=== PATIENT | male | born 1955 | race Caucasian/White ===

== ENCOUNTER 2018-08-08 07:36 | Emergency (ER) | payer OTHER ==
[2018-08-08] MEDS ORDERED: Levalbuterol 0.63MG/3ML NEB* UNIT OF USE INH ONE ×3 (07:40→07:42)
[2018-08-08 08:00] VITALS: BP 124/62
--- NOTE | 2018-08-08 08:24 | UC ---
Respiratory Complaint HPI - HPI Summary HPI Summary: 62 yo diabetic with chronic COPD, hx of CO2 retention, presents in respiratory distress. Oxygen dependent, he has had 3 albuterol nebules this morning with saturations remaining in the 70's. He denies chest pain. History of past respiratory failure with admission in 2016 requiring intubation. At that time he had an NSTEMI and renal failure. He is not on chronic steroids. He continues to smoke 1 pack per day. - History of Current Complaint Chief Complaint: UCRespiratory Stated Complaint: DIFFICULTY BREATHING Time Seen by Provider: 08/08/18 07:42 Hx Obtained From: Patient, Family/Rn Bone Marrow Transplant - here with his Nicole Onset/Duration: Gradual Onset, Lasting Days - increased sinus symptoms yesterday Timing: Constant Severity Initially: Severe Severity Currently: Severe Pain Intensity: 0 Character: Cough: Productive Aggravating Factors: Exertion Alleviating Factors: Bronchodilator Associated Signs And Symptoms: Positive: Dyspnea, Nasal Congestion, Sinus Discomfort. Negative: Fever, Chills - Risk Factors Pulmonary Embolism Risk Factors: Smoking Cardiac Risk Factors: Hypertension, Smoking, Diabetes Pseudomonas Risk Factors: Negative Tuberculosis Risk Factors: Negative - Allergies/Home Medications Allergies/Adverse Reactions: Allergies Allergy/AdvReac Type Severity Reaction Status Date / Time Penicillins Allergy Intermediate respiratory Verified 08/08/18 07:49 distress Adhesive Tape Allergy skin rash Verified 08/08/18 07:49 ibuprofen [From Motrin] Allergy kidney Verified 08/08/18 07:49 failure vancomycin Allergy kidney Verified 08/08/18 07:49 failure Home Medications: Home Medications Acetaminophen [Tylenol] 325 mg PO 08/08/18 [History] Albuterol 2.5MG/3ML (0.083%)* [Ventolin 2.5 MG/3 ML NEB.MONSTER*] 2.5 mg INH Q6H PRN 08/08/18 [History Confirmed 08/08/18] Aspirin [Aspir-Low] 81 mg PO 08/08/18 [History] Budesonide/Formote 160/4.5(NF) [Symbicort 160/4.5 (NF)] 2 puff INH BID 08/08/18 [History Confirmed 08/08/18] Cholecalciferol TAB* [Vitamin D TAB*] 2,000 units PO DAILY 08/08/18 [History Confirmed 08/08/18] DULoxetine CAP* [Cymbalta CAP*] 60 mg PO DAILY 08/08/18 [History Confirmed ] Furosemide TAB* [Lasix TAB*] 08/08/18 [History] Gabapentin CAP(*) [Neurontin 300 CAP(*)] 300 mg PO TID 08/08/18 [History Confirmed 08/08/18] Insulin GLARGINE(*) [Lantus(*)] 0 units SUBCUT ONCE 08/08/18 [History Confirmed 08/08/18] Omeprazole 20 mg PO QID 08/08/18 [History Confirmed 08/08/18] Potassium Citrate [Urocit-K 10] 1,080 mg PO 08/08/18 [History] Rosuvastatin (NF) [Crestor (NF)] 20 mg PO 1700 08/08/18 [History Confirmed 08/08] Spiriva Inhaler DEVICE* [Tiotropium Inhaler DEVICE*] 08/08/18 [History] Tamsulosin CAP* [Flomax CAP*] 0.4 mg PO DAILY 08/08/18 [History Confirmed ] guaiFENesin [Guaifenesin] 200 mg PO 08/08/18 [History] PMH/Surg Hx/FS Hx/Imm Hx Previously Healthy: No Endocrine History: Dyslipidemia Cardiovascular History: Cardiac Disease, Myocardial Infarction Respiratory History: COPD GI/ History: Gastroesophageal Reflux, Renal Disease Psychological History: Depression - Surgical History Surgical History: Yes - Family History Known Family History: Positive: Unknown - Not obtained due to acuity of his current presentation. - Social History Occupation: Disabled Lives: With Family Alcohol Use: None Substance Use Type: None Smoking Status (MU): Heavy Every Day Tobacco Smoker Review of Systems All Other Systems Reviewed And Are Negative: Yes Constitutional: Positive: Fatigue ENT: Positive: Sinus Congestion Respiratory: Positive: Shortness Of Breath, Cough Gastrointestinal: Positive: Negative Genitourinary: Positive: Negative Neurovascular: Positive: Negative Musculoskeletal: Positive: Negative Neurological: Positive: Negative Psychological: Positive: Depressed Physical Exam Triage Information Reviewed: Yes Appearance: No Pain Distress, Ill-Appearing, Obese, Other: - Arrives via wheelchair with oxygen at 4 liters. Able to speak in short sentences, but desaturates quickly, range of sats here from 74 to 92 (briefly post xopenex). Vital Signs: Initial Vital Signs Temp 97.5 F 08/08/18 07:39 Pulse 115 08/08/18 07:39 Resp 24 08/08/18 07:39 BP 125/47 08/08/18 07:39 Pulse Ox 81 08/08/18 07:39 Eyes: Positive: Conjunctiva Inflamed ENT: Positive: Pharynx normal Neck: Positive: Supple, Nontender, No Lymphadenopathy Respiratory: Positive: Respiratory distress, Decreased breath sounds, Accessory muscle use, Wheezing - Prolonged expiratory phase with wheeze. Cardiovascular: Positive: RRR, No Murmur - breath sounds obscuring heart sounds Neurological: Positive: Alert, Muscle Tone Normal Psychological Exam: Other - depressed mood and affect. Skin Exam: Normal Re-Evaluation - Re-Evaluation First Eval Re-Evaluation Time: 07:50 - sat to 92, quickly decreased to high 80's Change: Improved Respiratory Course/Dx - Course Course Of Treatment: Xopenex given with brief increase in saturation. Advised ambulance transfer for emergent treatment of incipient respiratory failure which he repeatedly refused. He was advised of the high risk he is taking in refusal of care. He signed out AMA as he simply does not want to go to the hospital due to his past history. His stated that she would drive him immediately to the emergency room. Cumulative time spent approximately 20 minutes. - Differential Dx/Diagnosis Differential Diagnosis/HQI/PQRI: Pulmonary Edema, Exacerbation Of COPD, Lower Resp Infection, Pulmonary Embolism Provider Diagnosis: Decompensated COPD with exacerbation (chronic obstructive pulmonary disease) - Physician Notification/Consults Discussed Patient Care With: Dominic Banks Time Discussed With Above Provider: 08:15 - Advised re refusal of ambulance transfer Instructed by Provider To: Transfer Discharge - Sign-Out/Discharge Documenting (check all that apply): Patient Departure All imaging exams completed and their final reports reviewed: No Studies - Discharge Plan Condition: Guarded Disposition: AGAINST MEDICAL ADVICE Referrals: Avi Salinas MD [Primary Care Provider] - - Billing Disposition and Condition Condition: GUARDED Disposition: Against Medical Advice
== END 2018-08-08 08:20 | disposition left against medical advice (07) ==
LOC: UCCORT 07:36
DX: J44.1 Chronic obstructive pulmonary disease with (acute) exacerbation (principal); F17.210 Nicotine dependence, cigarettes, uncomplicated; E11.9 Type 2 diabetes mellitus without complications; I10 Essential (primary) hypertension; I25.2 Old myocardial infarction; F32.9 Major depressive disorder, single episode, unspecified; Z79.4 Long term (current) use of insulin; K21.9 Gastro-esophageal reflux disease without esophagitis
CPT/HCPCS: 99203; G0463